=== PATIENT | male | born 1940 | race Caucasian/White ===

== ENCOUNTER 2017-11-29 09:55 | Emergency (ER) | payer MEDICARE, SELFPAY ==
[2017-11-29 10:10] VITALS: BP 131/89; PULSE 83; RESP 20; O2SAT 97; BMI 24.4
--- NOTE | 2017-11-29 10:25 | DI.RAD.S_ITS ---
PROCEDURE: XR CHEST 2V INDICATIONS: cough, smoker, chest pain. TECHNIQUE: 2 views of the chest were acquired. COMPARISON: None. FINDINGS: Surgical changes and devices: None. Lungs and pleura: No pleural effusions or pneumothorax. Lungs are clear. Mediastinum: Mediastinal contours are normal. Heart size is normal. Bones and chest wall: No suspicious bony abnormalities. Soft tissues appear unremarkable. IMPRESSION: No acute pulmonary process. Dictated by: Blanca Lombardi M.D. on 11/29/2017 at 10:50 Approved by: Blanca Lombardi M.D. on 11/29/2017 at 10:51
[2017-11-29 10:26] VITALS: BP 126/82; BP 138/91; PULSE 88; RESP 14; O2SAT 94
[2017-11-29 10:33] LABS: Add Manual Diff / Slide Review NO; Basophils Percent Auto 0.7 % (0-2); Eosinophils Percent Auto 0.2 % (2-4); Hematocrit 47.6 % (41-53); Hemoglobin 16.2 g/dL (13.5-17.5); INR 1.2 (0.9-1.3); Lymphocytes Percent Auto 12.8 % (25-40); Mean Corpuscular Hemoglobin 31.6 PG (26-34); Mean Corpuscular Volume 92.7 fL (80-100); Neutrophils Absolute Auto 11300 /uL (3000-5900); Neutrophils Percent Auto 71.3 % (50-75); Platelet Count 180 X10^3/uL (150-400); Prothrombin Time 12.6 SECONDS (10.1-12.7); Red Blood Cell Count 5.14 X10^6/uL (4.5-5.9); Red Cell Distribution Width 15.2 % (11.6-14.8); White Blood Cell Count 15.8 X10^3/uL (4.5-11.0)
[2017-11-29] MEDS: ASPIRIN 81 MG TAB 324 MG PO (10:35)
[2017-11-29 10:36] LABS: PTT Partial Thromboplastin Tim 25 SECONDS (26.4-36.2)
--- NOTE | 2017-11-29 10:37 | PC.NURSE ---
Pt states pain started in right neck, right neck slightly more full than left but patient states that is r/t jaw not being alligned. + 1-1&1/2 ppd smoker x 60 years. Pt is unable to get comfortable lying down. Pain worse w/ movement and exertion. Increased RR noted w/ exertion. States he has inhalers but doesn't use them. Does not want to stay in the hospital.
[2017-11-29 10:39] LABS: Alanine Aminotransferase 18 IU/L (21-72); Albumin 4.2 g/dL (3.5-5.0); Albumin Globulin Ratio 1.4 (1.0-2.8); Alkaline Phosphatase 85 U/L (38-126); Aspartate Aminotransferase 29 IU/L (17-59); Bilirubin Total 1.2 mg/dL (0.2-1.3); Blood Urea Nitrogen 22 mg/dL (9-20); Calcium 9.8 mg/dL (8.4-10.2); Carbon Dioxide 28 mmol/L (22-32); Chloride 101 mmol/L (98-107); Creatine Kinase 67 U/L (55-170); Estimated Glomerular Filt Rate > 60.0 mL/min (>60); Glucose 102 mg/dL (80-110); HEMOLYSIS 60 (0-50); Lipase 40 U/L (23-300); Sodium 139 mmol/L (137-145); Total Protein 7.2 g/dL (6.3-8.2)
[2017-11-29 10:40] LABS: Potassium 4.6 mmol/L (3.4-5.1)
[2017-11-29 10:43] VITALS: BP 129/80; PULSE 80
[2017-11-29] MEDS: NITROGLYCERIN 0.4 MG SL TAB SL (10:43)
[2017-11-29 10:53] LABS: Troponin I < 0.012 ng/mL (0.01-0.034)
[2017-11-29] MEDS: ACETAMINOPHEN 325 MG TABLET 650 MG PO (10:55)
[2017-11-29 10:57] VITALS: BP 128/74; PULSE 84
[2017-11-29 10:58] VITALS: BP 128/74; PULSE 80; RESP 18; O2SAT 93
--- NOTE | 2017-11-29 12:04 | ED.NECK ---
HPI - Neck Pain/Injury General Chief Complaint: Neck Pain/Injury Stated Complaint: throat clogged History of Present Illness HPI Narrative: HPI 77-year-old male lifelong smoker with HTN presents for evaluation of 24 hours of neck discomfort and midline substernal chest discomfort that is heartburn -like in nature, pain is worsened by light activity, intermittently relieved by rest, and at times worsens without clear provoking or relieving factors. Patient without a clear history of GERD, patient with a distant prior stress tests, patient may have recently discontinued lisinopril as he heard on the television that it is one of the worst medications and that it causes cancer. Patient takes an unknown antibiotic b.i.d. to prevent cancer as he is a smoker. Patient without any fevers, chills, nausea, vomiting. Patient notes mild soreness in his throat, continues to take PO well. M/S/F/SocHx notable for: please see HPI; remainder reviewed with patient and in chart. ROS: Negative constitutional, eye, cardiovascular, pulmonary, GI, , MSK, skin, neurologic, psychiatric, endocrine unless noted in the HPI. Exam HR 88, BP 138/91, RR 14, T (no available), SaO2 94 % on room air; at 10:26 AM. Gen: Pleasant, non-toxic appearing, resting comfortably. HEENT: NC, AT, PEERL, EOMI. Resp: Clear to auscultation bilaterally, normal work of breathing. Card: RRR with no M/R/G, no crackles in lung bases, no pedal edema, no JVD appreciated. GI: nontender to palpation throughout all quadrants, nondistended, no rebound, no guarding. Vascular: Both ankles, calves, and thighs of equal size, no calf tenderness to palpation bilaterally. MSK: No chest wall TTP. No visible deformities, strength and tone WNL. Skin: Normal color with no visible lesions. Neuro: AO x 3, no facial asymmetry, vision and hearing WNL. Psych: Mood and affect appropriate. Labs / Imaging (pertinent): WBC 15.8, Hb 16.2, Na 139, K 4.6, troponin <0.012, INR 1.2. EKG: SR at 83 bpm, no RI segment depressions, no new ST segment changes, new LBBB, or T-wave changes that would suggest acute ischemia. CXR: No acute cardiopulmonary disease process. MDM Previous chart, nursing note, and vitals reviewed. A: 77-year-old male lifelong smoker with HTN presents for evaluation of 24 hours of neck discomfort and midline substernal chest discomfort that is heartburn -like in nature, pain is worsened by light activity, intermittently relieved by rest, and at times worsens without clear provoking or relieving factors. DDx and Evaluation: * ACS - doubt ACS given a non-ischemic EKG and a negative troponin greater than six hours from maximal symptom onset. * UA - very high risk history for unstable angina by clinical gestalt, HEART score 5 (Hx - 2, EKG - 0, age - 2, risk factors - 1, troponin - 0; 30 day MACE: 12-16.6%). Patient given aspirin and nitroglycerin with unclear change in symptoms. * Pericarditis - consider pericarditis unlikely given the lack of RI segment depressions as well as the absence of diffuse ST-segment elevations, lack of reduction of pain when supine, and lack of a friction rub. * Myocarditis - unlikely given the negative troponin and an EKG without characteristic RI-segment or ST-segment changes. * Dissection - dissection is unlikely given symptoms, and lack of mediastinal widening. * PE - low clinical suspicion given history and alternate diagnosis, further risk stratification (e.g.) Well's not indicated. * Mediastinal Air - no evidence by CXR or auscultation. * Pneumothorax - no evidence by CXR or physical exam. * MSK - doubt given lack of reproducibility on exam. * Endocarditis - no identifiable risk factors, patient afebrile, no new murmurs appreciated on exam; doubt. * GI (Esophageal rupture, GERD) - esophageal rupture effectively excluded given the lack of mediastinal widening, non-toxic appearance, and lack of identifiable risk factors. While not definitively excluded, further evaluation of GERD is deferred to an outpatient setting. ED Course: Patient given ASA and SL nitroglycerin. Vital signs remained stable and within clinically acceptable limits. Disposition: patient discharged AMA with prompt PCP follow-up recommended. Patient prescribed 81 mg aspirin daily as well as p.r.n. nitroglycerin. Extensive discussion was had with the patient prior to discharge in attempt to explain the concern that his dyspepsia type symptoms may represent unstable angina and that this disease process has the possibility for sudden decompensation with permanent disability or and has inpatient care is appropriate for managing this condition. Attempts were made to identify barriers to further care, the patient had intact judgment, good insight into the explanation, and made an informed decision to be discharged against medical advice and to follow up with his primary care physician. Aspirin and nitroglycerin were prescribed attempt to mitigate the consequences of a missed diagnosis of unstable angina. Impression: Chest Pain, discharge AMA. (please reference below for remainder of encounter information) Patient was notified of their elevated blood pressure and recommended to follow up with their primary care physician. As the patient is without evidence of acute end organ dysfunction no further emergent evaluation is indicated as per the 2013 [facility] clinical policy. Related Data Home Medications Medication Instructions Recorded Confirmed doxycycline hyclate 100 mg PO BID 11/29/17 11/29/17 lisinopril-hydrochlorothiazide 1 tab PO DAILY 11/29/17 11/29/17 Allergies Allergy/AdvReac Type Severity Reaction Status Date / Time Penicillins Allergy Verified 11/29/17 10:10 [facility] Medical History Hypertension (Acute) Smoker (Acute) Exam Initial Vital Signs Initial Vital Signs: Vital Signs Pulse Rate 83 11/29/17 10:10 Respiratory Rate 20 11/29/17 10:10 Blood Pressure 131/89 H 11/29/17 10:10 Pulse Oximetry 97 11/29/17 10:10 Course Orders Ordered: ED Orders 11/29/17 10:20 Complete Blood Count AUTO DIFF Stat Comprehensive Metabolic Panel Stat Lipase Stat Partial Thromboplastin Time Stat Prothrombin Time INR Stat Troponin & CK Cardiac Panel Stat 11/29/17 10:25 XR chest 2V Stat Acetaminophen (Tylenol) 650 mg PO Q4HR PRN PRN Reason: As Needed for Fever/Mild Pain Last Admin: 11/29/17 10:55 Dose: 650 mg Nitroglycerin (Nitrostat) 0.4 mg SL [id number] PRN PRN Reason: Chest Pain Last Admin: 11/29/17 10:43 Dose: 0.4 mg Discontinued Medications Aspirin (Aspirin Chew) 324 mg PO NOW ONE Stop: 11/29/17 10:26 Last Admin: 11/29/17 10:35 Dose: 324 mg Vital Signs - 8 hr 11/29/17 10:10 11/29/17 10:26 11/29/17 10:43 Pulse Rate 83 88 80 Respiratory Rate 20 14 Blood Pressure 131/89 H 129/80 H Blood Pressure [Left Arm] 138/91 H Blood Pressure [Right Arm] 126/82 H Pulse Oximetry 97 94 11/29/17 10:57 11/29/17 10:58 Pulse Rate 84 80 Respiratory Rate 18 Blood Pressure 128/74 H Blood Pressure [Left Arm] Blood Pressure [Right Arm] 128/74 H Pulse Oximetry 93 MDM - Neck Pain/Injury Lab Data Result diagrams: 11/29/17 10:20 11/29/17 10:20 Lab Results 11/29/17 11/29/17 11/29/17 Range/Units 10:20 10:20 10:20 WBC 15.8 H (4.5-11.0) X10^3/uL RBC 5.14 (4.5-5.9) X10^6/uL Hgb 16.2 (13.5-17.5) g/dL Hct 47.6 (41-53) % MCV 92.7 (80-100) fL MCH 31.6 (26-34) PG MCHC 34.0 (30-36) % RDW 15.2 H (11.6-14.8) % Plt Count 180 (150-400) X10^3/uL Neut % (Auto) 71.3 (50-75) % Lymph % (Auto) 12.8 L (25-40) % [place] % (Auto) 15.0 H (3-14) % Eos % (Auto) 0.2 L (2-4) % Baso % (Auto) 0.7 (0-2) % Neut # (Auto) 51978 H (0941-9784) /uL PT 12.6 (10.1-12.7) SECONDS INR 1.2 (0.9-1.3) APTT 25 L (26.4-36.2) SECONDS Sodium 139 (137-145) mmol/L Potassium 4.6 (3.4-5.1) mmol/L Chloride 101 (98-107) mmol/L Carbon Dioxide 28 (22-32) mmol/L BUN 22 H (9-20) mg/dL Creatinine 1.00 (0.66-1.25) mg/dL Estimated GFR > 60.0 (>60) mL/min BUN/Creatinine Ratio 22.0 (6-22) Glucose 102 (80-110) mg/dL Calcium 9.8 (8.4-10.2) mg/dL Total Bilirubin 1.2 (0.2-1.3) mg/dL AST 29 (17-59) IU/L ALT 18 L (21-72) IU/L Alkaline Phosphatase 85 (38-126) U/L Total Creatine Kinase 67 (55-170) U/L Troponin I < 0.012 (0.01-0.034) ng/mL Total Protein 7.2 (6.3-8.2) g/dL Albumin 4.2 (3.5-5.0) g/dL Globulin 3.0 (1.7-4.1) g/dL Albumin/Globulin Ratio 1.4 (1.0-2.8) Lipase 40 (23-300) U/L Discharge Plan Departure Prescriptions: No Action doxycycline hyclate 100 mg capsule 100 mg PO BID RF: 0 lisinopril-hydrochlorothiazide 10-12.5 mg tablet 1 tab PO DAILY RF: 0
[2017-11-29 12:07] VITALS: BP 115/70; PULSE 71; RESP 14; O2SAT 95
== END 2017-11-29 12:15 | disposition left against medical advice (07) ==
PROVIDERS: Emergency Provider Emergency Medicine
DX: R07.89 Other chest pain (principal)
CPT/HCPCS: 36591; 71046; 80053; 82550; 82553; 83690; 84484; 85025; 85610; 85730; 93005; 99283; 99285